=== PATIENT | female | born 1965 | race Asian ===

== ENCOUNTER 2017-09-19 15:17 | Emergency (ER) | payer OTHER ==
[2017-09-19 15:34] VITALS: TEMP 98.2; O2SAT 96
--- NOTE | 2017-09-19 16:05 | CPEKG ---
Heart Rate: 65 RR Interval: 923 P-R Interval: 156 QRSD Interval: 98 QT Interval: 416 QTC Interval: 433 P [place]: 15 QRS [place]: 43 T Wave [place]: 17 EKG Severity - NORMAL ECG - EKG Impression: SINUS RHYTHM Electronically Signed By: Natasha Zavala 19-Sep-2017 20:04:28
[2017-09-19] MEDS ORDERED: ASPIRIN 81 MG CHEWABLE TAB PO ONE (16:25)
--- NOTE | 2017-09-19 16:25 | EDPHY ---
H & P Time Seen by Provider: 09/19/17 15:59 HPI/ROS: CHIEF COMPLAINT: Chest pain HISTORY OF PRESENT ILLNESS: Patient is a 51-year-old female who presents to the emergency department with chest pain. Patient states that over the past 4 weeks she has had intermittent chest "tightness. "This occurs mostly at night and resolves in the morning. Today she woke with a slightly different pain. She describes it more as a pressure or palpitation. It has been persistent all day. It does not radiate. She denies chest pain or shortness of breath. No fevers or chills. No cough. No leg pain or swelling. No travel. REVIEW OF SYSTEMS: My complete review of systems is negative except as mentioned in the HPI. Past Medical/Surgical History: Negative Smoking Status: Never smoked Physical Exam: Vitals noted. Hypertensive at 172/95 GENERAL: Well-appearing, in no acute distress, alert. HEENT: Eyes normal to inspection, normal pharynx, no signs of dehydration. NECK: No thyromegaly, no lymphadenopathy, supple. RESPIRATORY: Clear to auscultation bilaterally, no rales, rhonchi or wheezing. CVS: Regular rate and rhythm, no rubs, murmurs, or gallops. No chest wall tenderness palpation. ABDOMEN: Soft, nontender, nondistended, no organomegaly. BACK: Normal to inspection, no CVA tenderness. SKIN: Normal color, no rash, warm, dry. No pallor. EXTREMITIES: No pedal edema, no calf tenderness, no Homans sign or cords, no joint swelling. NEURO/PSYCH: Alert and oriented x3, normal mood and affect, normal motor sensory exam. Constitutional: Initial Vital Signs Temperature (C) 36.8 C 09/19/17 15:29 Heart Rate 67 09/19/17 15:29 Respiratory Rate 14 09/19/17 15:29 Blood Pressure 172/95 H 09/19/17 15:29 O2 Sat (%) 96 09/19/17 15:29 O2 Delivery Mode Room Air Allergies/Adverse Reactions: No Known Allergies Allergy (Unverified 09/19/17 15:29) Home Medications: Medication Instructions Recorded NK [No Known Home Meds] 09/19/17 Medical Decision Making - Diagnostics Imaging Results: Imaging Impressions Chest X-Ray 09/19/17 16:26 Impression: Normal chest. ED Course/Re-evaluation: In the emergency department I discussed possible etiologies with the patient. I answered all of her questions. An IV was placed. Laboratory studies, EKG and chest x-ray were ordered. Patient given aspirin 324 mg orally. Patient was given Toradol 30 mg IV for her pain. EKG shows normal sinus rhythm, normal rate, normal axis, normal intervals. There are no ST or T-wave abnormalities. EKG is normal as interpreted by me. Patient's D-dimer was negative. Troponin was negative. Chemistry and CBC were normal. Chest x-ray: No acute disease. 545: I rechecked the patient. She appeared comfortable. Clear breath sounds in no distress. I discussed all results. I answered all her questions. She is given warnings prior to leaving. She will return with worsening symptoms. She will follow up with Dr. Farmer. Differential Diagnosis: My differential includes but is not limited to ACS, acute PA, pneumonia, pneumothorax, pleurisy, pulmonary embolus - Data Points Laboratory Results: Laboratory Results 09/19/17 16:05 09/19/17 16:05 09/19/17 09/19/17 09/19/17 16:05 16:05 16:05 WBC 7.99 10^3/uL 10^3/uL (3.80-9.50) RBC 4.97 10^6/uL 10^6/uL (4.18-5.33) Hgb 14.0 g/dL g/dL (12.6-16.3) Hct 41.3 % % (38.0-47.0) MCV 83.1 fL fL (81.5-99.8) MCH 28.2 pg pg (27.9-34.1) MCHC 33.9 g/dL g/dL (32.4-36.7) RDW 12.8 % % (11.5-15.2) Plt Count 285 10^3/uL 10^3/uL (150-400) MPV 9.4 fL fL (8.7-11.7) Neut % (Auto) 54.9 % % (39.3-74.2) Lymph % (Auto) 33.0 % % (15.0-45.0) [place] % (Auto) 10.1 % % (4.5-13.0) Eos % (Auto) 1.3 % % (0.6-7.6) Baso % (Auto) 0.6 % % (0.3-1.7) Nucleat RBC Rel Count 0.0 % % (0.0-0.2) Absolute Neuts (auto) 4.38 10^3/uL 10^3/uL (1.70-6.50) Absolute Lymphs (auto) 2.64 10^3/uL 10^3/uL (1.00-3.00) Absolute Monos (auto) 0.81 10^3/uL H 10^3/uL (0.30-0.80) Absolute Eos (auto) 0.10 10^3/uL 10^3/uL (0.03-0.40) Absolute Basos (auto) 0.05 10^3/uL 10^3/uL (0.02-0.10) Absolute Nucleated RBC 0.00 10^3/uL 10^3/uL (0-0.01) Immature Gran % 0.1 % % (0.0-1.1) Immature Gran # 0.01 10^3/uL 10^3/uL (0.00-0.10) PT 11.7 SEC L SEC (12.0-15.0) INR 0.87 (0.83-1.16) APTT 28.5 SEC SEC (23.0-38.0) D-Dimer 0.35 ug/mLFEU ug/mLFEU (0.00-0.50) Sodium 142 mEq/L mEq/L (134-144) Potassium 3.9 mEq/L mEq/L (3.5-5.2) Chloride 105 mEq/L mEq/L (97-110) Carbon Dioxide 26 mEq/l mEq/l (22-31) Anion Gap 11 mEq/L mEq/L (8-16) BUN 22 mg/dL mg/dL (7-23) Creatinine 0.9 mg/dL mg/dL (0.6-1.0) Estimated GFR > 60 Glucose 99 mg/dL mg/dL (70-100) Calcium 9.6 mg/dL mg/dL (8.5-10.4) Troponin I < 0.012 ng/mL ng/mL (0.000-0.034) Medications Given: Discontinued Medications Aspirin (Aspirin) 324 mg PO EDNOW ONE Stop: 09/19/17 16:26 Last Admin: 09/19/17 16:30 Dose: 324 mg Departure - Departure Disposition: Home, Routine, Self-Care Clinical Impression: Chest pain Qualifiers: Chest pain type: unspecified Qualified Code(s): R07.9 - Chest pain, unspecified Condition: Good Instructions: Chest Pain (ED) Additional Instructions: Your laboratory studies were normal. Your chest x-ray and EKG were normal. You need close follow-up with Dr. Farmer. Return to the emergency department with increasing pain, shortness of breath or any other concerns. Referrals: Samaria Farmer MD [Primary Care Provider] - 5-7 days, call for appt.
[2017-09-19 16:37] LABS: ANION GAP 11 mEq/L (8-16); CALCIUM 9.6 mg/dL (8.5-10.4); CARBON DIOXIDE 26 mEq/l (22-31); CHLORIDE 105 mEq/L (97-110); CREATININE 0.9 mg/dL (0.6-1.0); GLOMERULAR FILTRATION RATE > 60; GLUCOSE 99 mg/dL (70-100); POTASSIUM 3.9 mEq/L (3.5-5.2); SODIUM 142 mEq/L (134-144)
[2017-09-19 16:42] LABS: % IMMATURE GRANULYOCYTES 0.1 % (0.0-1.1); ABSOLUTE IMMATURE GRANULOCYTES 0.01 10^3/uL (0.00-0.10); ADD DIFF? NO; ADD MORPH? NO; ADD SCAN? NO; ATYPICAL LYMPHOCYTE FLAG 20 (0-99); FRAGMENT RBC FLAG 0 (0-99); HEMATOCRIT 41.3 % (38.0-47.0); LEFT SHIFT FLG 0 (0-99); LIPEMIA HEMOLYSIS FLAG 90 (0-99); MEAN CELL HEMOGLOBIN 28.2 pg (27.9-34.1); MEAN CELL HEMOGLOBIN CONCENTR. 33.9 g/dL (32.4-36.7); MEAN CELL VOLUME 83.1 fL (81.5-99.8); MEAN PLATELET VOLUME 9.4 fL (8.7-11.7); PLATELET CLUMPS FLAG 0 (0-99); PLATELET COUNT 285 10^3/uL (150-400); RED BLOOD CELL COUNT 4.97 10^6/uL (4.18-5.33); RED CELL DISTRIBUTION WIDTH 12.8 % (11.5-15.2)
[2017-09-19 16:49] LABS: TROPONIN I < 0.012 ng/mL (0.000-0.034)
[2017-09-19 17:14] LABS: INR 0.87 (0.83-1.16); PROTIME(PATIENT) 11.7 SEC (12.0-15.0)
[2017-09-19 17:15] LABS: APTT 28.5 SEC (23.0-38.0)
[2017-09-19 17:54] VITALS: BP 177/80; PULSE 69; RESP 16
== END 2017-09-19 17:55 | disposition home or self-care (01) ==
DX: R07.9 Chest pain, unspecified (principal)

== ENCOUNTER → 2017-10-24 | Outpatient (CLI) | payer OTHER | LOC: FIMAGING 08:28 | PROVIDERS: ATTEND Internal Medicine | DX: Z12.31 Encounter for screening mammogram for malignant neoplasm of breast (principal); Z80.3 Family history of malignant neoplasm of breast | CPT/HCPCS: G0202 ==

== ENCOUNTER → 2019-01-19 | Outpatient (CLI) | payer OTHER | LOC: BMCIMAGING 16:07 | PROVIDERS: ATTEND Orthopaedic Surgery Hand Surgery | DX: M18.9 Osteoarthritis of first carpometacarpal joint, unspecified (principal) ==